=== PATIENT | female | born 1990 | race Caucasian/White ===

== ENCOUNTER 2017-12-20 08:24 | Inpatient (IN) | payer OTHER ==
[~2017-12-20] VITALS: Ht 170.2 cm; Wt 74.0 kg
[2017-12-20] VITALS (11 sets, daily range): BP systolic 100–123; BP diastolic 61–80; PULSE 18–69; RESP 16–20; TEMP 97.6–98.6; O2SAT 97–100
[2017-12-20 09:21] LABS: AUTOMATED NEUTROPHIL # 6.5 TH/MM3 (1.8-7.7); BASOPHIL # 0.1 TH/MM3 (0-0.2); BASOPHIL % 1.1 % (0.0-2.0); EOSINOPHIL # 0.1 TH/MM3 (0-0.4); EOSINOPHIL % 0.6 % (0.0-4.0); HEMATOCRIT 38.1 % (35.0-46.0); HEMOGLOBIN 13.5 GM/DL (11.6-15.3); LYMPH % 16.3 % (9.0-44.0); LYMPHOCYTE # 1.4 TH/MM3 (1.0-4.8); MEAN CELL VOLUME 88.1 FL (80.0-100.0); MEAN CORPUSCULAR HEMOGLOBIN 31.4 PG (27.0-34.0); MEAN CORPUSCULAR HGB CONC 35.6 % (32.0-36.0); MEAN PLATELET VOLUME 9.1 FL (7.0-11.0); MONO % 6.4 % (0.0-8.0); MONOCYTE # 0.5 TH/MM3 (0-0.9); NEUT % 75.6 % (16.0-70.0); PLATELET COUNT 200 TH/MM3 (150-450); RED BLOOD COUNT 4.32 MIL/MM3 (4.00-5.30); RED CELL DISTRIBUTION WIDTH 13.3 % (11.6-17.2); WHITE BLOOD COUNT 8.6 TH/MM3 (4.0-11.0)
[2017-12-20] MEDS ORDERED: LACTATED RINGER'S 1000 ML INJ 1,000 ML IV ONE (09:23)
[2017-12-20 09:24] LABS: BACTERIA, URINE OCC /hpf; BILIRUBIN, URINE NEG (NEG); BLOOD, URINE NEG (NEG); GLUCOSE,URINE NEG (NEG); KETONE, URINE NEG (NEG); MUCUS URINE FEW /lpf (OCC); NITRITE,URINE NEG (NEG); SQUAMOUS EPITHELIAL CELL URINE 14 /hpf (0-5); URINE COLOR YELLOW (YELLW/STRAW); URINE LEUKOCYTE ESTERASE MOD (NEG)
--- NOTE | 2017-12-20 09:32 | HHI.HP ---
HPI Chief Complaint breech at term with low fluid, for primary delivery Date Seen: Dec 20, 2017 Time Seen: 09:20 Travel History International Travel<30 Days: No Contact w/Intl Traveler<30Days: No Known Affected Area: No History of Present Illness HPI 27 yo with gonzales female IUP at 40w1d was seen for routine OB visit at office yesterday 12/19/17 with ultrasound showing FRANKY 7cm and position breech. Due to low normal fluid and breech presentation d/w pt recommendation for delivery via . Pt and amenable, desired to schedule today. No signs of labor. SVE yesterday in office closed cervix. Pain 1/10 mild pressure, no LOF no VB, good FM. complicated by history of HSV, no symptoms during , has been on preventative medication since 36 weeks with no prodrome. Weeks Gestation: 40 Para: 0 : 2 Last Menstrual Period: Mar 14, 2017 Miscarriage: 1 : 0 History Past Medical History Narrative Medical history of HSV, no outbreaks during Obstetric History Obstetric History G1 = SAB @ 5 wks, 12/2016 G2 = current Past Surgical History Narrative Surgical denies Family History Family History: Negative Social History Alcohol Use: No Tobacco Use: No Substance Abuse: No Allergies-Medications (Allergen,Severity, Reaction): Coded Allergies: No Known Allergies (Unverified , 12/20/17) Review of Systems General / Constitutional: Weight Gain, No: Fever, Chills, Other Eyes: No: Diploplia, Blurred Vision, Visual changes, Pain, Photophobia HENT: No: Headaches, Vertigo, Lightheadedness Cardiovascular: No: Irregular Rhythm, Chest Pain or Discomfort, Palpitations, Tachycardia, Syncope, Varicosities, Edema, Cyanosis Respiratory: No: Cough, Short of Breath, Other Gastrointestinal: No: Nausea, Vomiting, Diarrhea Genitourinary: Pelvic Pain (pressure), No: Decreased Urinary Output, Oliguria Musculoskeletal: No: Limited ROM, Weakness, Cramping, Edema, Pain Skin: No Rash, No Itching, No Dryness, No Lumps, No Change in Pigmentation, No Change in Nails, No Alopecia, No Lesions Neurologic: No: Weakness, Dizziness, Syncope, Focal Abnormalities, Coordination Problem, Headache, Slurred Speech, Seizures Psychiatric: No: Depression, Suicidal Ideations, Homicidal Ideation Endocrine: No: Heat Intolerance, Cold Intolerance, Polydipsia, Polyuria, Other Physical Exam Vital Signs Date Time Temp Pulse Resp B/P (MAP) Pulse Ox O2 Delivery O2 Flow Rate FiO2 12/20/17 08:57 69 118/80 (93) Narrative GENERAL: Well-nourished, well-developed patient. SKIN: Warm and dry. HEAD: Normocephalic and atraumatic. EYES: No scleral icterus. No injection or drainage. ENT: No nasal drainage noted. Mucous membranes pink. Airway patent. NECK: Supple, trachea midline. No JVD. CARDIOVASCULAR: Regular rate and rhythm without murmurs, gallops, or rubs. RESPIRATORY: Breath sounds equal bilaterally. No accessory muscle use. BREASTS: deferred. ABDOMEN/GI: Abdomen soft, non-tender, bowel sounds present, no rebound, no guarding Gravid to [40] weeks size Fundal Height: [40] GENITOURINARY: Closed/50/-3 on exam in office yesterday Presentation: breech on office sono 12/19/17 Membranes: [intact] Uterine Contractions: [rare] FHT's: Category:I EXTREMITIES: No cyanosis or edema. BACK: Nontender without obvious deformity. No CVA tenderness. NEUROLOGICAL: Awake and alert. Motor and sensory grossly within normal limits. Five out of 5 muscle strength in all muscle groups. Normal speech. Caprini VTE Risk Assessment Caprini VTE Risk Assessment: No/Low Risk (score <= 1) VTE Pharm Contraindication: High risk for bleeding Caprini Risk Assessment Model Point Value = 1 Point Value = 2 Point Value = 3 Point Value = 5 Age 41-60 Minor surgery BMI > 25 kg/m2 Swollen legs Varicose veins or History of unexplained or recurrent spontaneous Oral contraceptives or hormone replacement Sepsis (< 1 month) Serious lung disease, including pneumonia (< 1 month) Abnormal pulmonary function Acute myocardial infarction Congestive heart failure (< 1 month) History of inflammatory bowel disease Medical patient at bed rest Age 61-74 Arthroscopic surgery Major open surgery (> 45 min) Laparoscopic surgery (> 45 min) Malignancy Confined to bed (> 72 hours) Immobilizing plaster cast Central venous access Age >= 75 History of VTE Family history of VTE Factor V Leiden Prothrombin [id number] Lupus anticoagulant Anticardiolipin antibodies Elevated serum homocysteine Heparin-induced thrombocytopenia Other congenital or acquired thrombophilia Stroke (< 1 month) Elective arthroplasty Hip, pelvis, or leg fracture Acute spinal cord injury (< 1 month) Prophylaxis Regimen Total Risk Factor Score Risk Level Prophylaxis Regimen 0-1 Low Early ambulation 2 Moderate Order ONE of the following: *Sequential Compression Device (SCD) *Heparin 5000 units SQ BID 3-4 Higher Order ONE of the following medications: *Heparin 5000 units SQ TID *Enoxaparin/Lovenox 40 mg SQ daily (WT < 150 kg, CrCl > 30 mL/min) *Enoxaparin/Lovenox 30 mg SQ daily (WT < 150 kg, CrCl > 10-29 mL/min) *Enoxaparin/Lovenox 30 mg SQ BID (WT < 150 kg, CrCl > 30 mL/min) AND/OR *Sequential Compression Device (SCD) 5 or more Highest Order ONE of the following medications: *Heparin 5000 units SQ TID (Preferred with Epidurals) *Enoxaparin/Lovenox 40 mg SQ daily (WT < 150 kg, CrCl > 30 mL/min) *Enoxaparin/Lovenox 30 mg SQ daily (WT < 150 kg, CrCl > 10-29 mL/min) *Enoxaparin/Lovenox 30 mg SQ BID (WT < 150 kg, CrCl > 30 mL/min) AND *Sequential Compression Device (SCD) Data Data Vital Signs Reviewed: Yes Orders Orders Admit To Inpatient (12/20/17 ) Vital Signs (Adult) .ON ADMISSION (12/20/17 08:56) Activity Oob Ad [place] (12/20/17 08:56) Heart (12/20/17 08:56) Urinary Catheter Management CURT.Q8H (12/20/17 08:56) ^ Preps (12/20/17 08:56) Scd / Matteo / Foot Pump CURT.QSHIFT (12/20/17 08:56) ^ Ultrasound For Locatio (12/20/17 08:56) Diet Npo (12/20/17 Breakfast) Type And Screen (12/20/17 08:56) Complete Blood Count With Diff (12/20/17 08:56) Urinalysis - C+S If Indicated (12/20/17 08:56) Drug Screen, Random Urine (12/20/17 08:56) Specimen To Be Collected PRN (12/20/17 08:56) Specimen To Be Collected PRN (12/20/17 08:56) Code Status (12/20/17 09:23) ^ Preps (12/20/17 09:23) Scd / Matteo / Foot Pump CURT.QSHIFT (12/20/17 09:23) Lactated Ringer's 1000 Ml Inj (Lr 1000 M (12/20/17 09:23) Lactated Ringer's 1000 Ml Inj (Lr 1000 M (12/20/17 09:53) Cefazolin 2 Gm Premix (Ancef 2 Gm Premix (12/20/17 10:30) Citric Acid-Sodium Citrate Liq (Bicitra (12/20/17 11:00) Drug Screen, Random Urine (12/20/17 09:23) Specimen To Be Collected PRN (12/20/17 09:23) Group B Strep: Negative Labs Laboratory Tests Test 12/20/17 08:54 White Blood Count 8.6 Red Blood Count 4.32 Hemoglobin 13.5 Hematocrit 38.1 Mean Corpuscular Volume 88.1 Mean Corpuscular Hemoglobin 31.4 Mean Corpuscular Hemoglobin Concent 35.6 Red Cell Distribution Width 13.3 Platelet Count 200 Mean Platelet Volume 9.1 Neutrophils (%) (Auto) 75.6 Lymphocytes (%) (Auto) 16.3 Monocytes (%) (Auto) 6.4 Eosinophils (%) (Auto) 0.6 Basophils (%) (Auto) 1.1 Neutrophils # (Auto) 6.5 Lymphocytes # (Auto) 1.4 Monocytes # (Auto) 0.5 Eosinophils # (Auto) 0.1 Basophils # (Auto) 0.1 CBC Comment DIFF FINAL Differential Comment Assessment/Plan Problem List: (1) Breech presentation of fetus ICD Codes: O32.1XX0 - Maternal care for breech presentation, not applicable or unspecified Status: Acute Qualifiers: Qualified Codes: O32.1XX0 - Maternal care for breech presentation, not applicable or unspecified (2) 40 weeks gestation of ICD Codes: Z3A.40 - 40 weeks gestation of Status: Acute Assessment and Plan 27 yo with gonzales female IUP at 40w1d admit for scheduled due to breech at term and low normal FRANKY 1) breech: for primary CD, r/b/a d/w pt & , AQA, consents signed 2) GBS neg 3) h/o HSV, no prodrome or outbreaks during , has been on preventative Valtrex since 36 wks 4) status: breech, female, EFW 7# Discharge Planning 2-3d PP Priya Corrales MD Dec 20, 2017 09:32
[2017-12-20] MEDS ORDERED: LACTATED RINGER'S 1000 ML INJ 1,000 ML IV SCH ×2 (09:53→16:26)
[2017-12-20] MEDS ORDERED: MORPHINE SULFATE PF 5 MG/10 ML VIAL ONE (10:22)
[2017-12-20] MEDS ORDERED: ACETAMINOPHEN 1000 MG/100 ML 100 ML IV ONE ×2 (10:22→11:30)
[2017-12-20] MEDS ORDERED: CEFAZOLIN INJ 2,000 MG in SODIUM CHLORIDE 0.9% INJ 100 ML IV SCH (10:30)
[2017-12-20] MEDS ORDERED: ceFAZolin 2 GM PREMIX 50 ML IV SCH (10:30)
[2017-12-20] MEDS ORDERED: CITRIC ACID-SODIUM CITRATE LIQ 30 ML UDC PO SCH (11:00)
[2017-12-20] MEDS ORDERED: SIMETHICONE 80 MG CHEWABLE TAB PO PRN (11:30)
[2017-12-20] MEDS: SODIUM CHLORIDE 0.9% FLUSH 10 ML FLUSH IV FLUSH SCH (11:30)
[2017-12-20] MEDS ORDERED: oxyCODONE/ACETAMINOPHEN 5 MG/325 MG TAB PO PRN (11:30)
[2017-12-20] MEDS ORDERED: ONDANSETRON HCL 4 MG/2 ML VIAL IV PUSH PRN (11:30)
[2017-12-20] MEDS ORDERED: ACETAMINOPHEN 325 MG TAB PO PRN (11:30)
[2017-12-20] MEDS ORDERED: SODIUM CHLORIDE 0.9% FLUSH 10 ML FLUSH IV FLUSH PRN (11:30)
[2017-12-20] MEDS ORDERED: OXYTOCIN 30 UNITS-500ML PREMIX 500 ML IV ONE (11:30)
[2017-12-20] MEDS ORDERED: KETOROLAC TROMETHAMINE 60 MG/2 ML (IM) VIAL IM PRN (11:30)
--- NOTE | 2017-12-20 11:31 | PD.OB.DELI ---
Procedure Note Section Procedure Pre Op Diagnosis: (1) Breech presentation of fetus (2) 40 weeks gestation of Post Op Diagnosis: (1) S/P primary low transverse (2) Breech presentation of fetus (3) 40 weeks gestation of Performed by Priya Corrales Procedure: Primary Low Transverse Sec Indication for delivery: malposition (patricio breech) Previous condition: None Informed consent obtained: For anesthesia, For procedure Confirmed correct: Patient, Procedure, Site, Time-out taken Anesthesia: Spinal Medication prior to procedure: As documented in eMAR Monitoring during procedure: Blood pressure monitoring, Pulse oximetry Urinary catheter: Inserted using sterile technique, To dependent drainage, ml urine output (300 mL) Sterile preparation: Duraprep, In usual fashion, With drapes to expose affected area Position: Supine with wedge to right side Operative Features Skin Incision: Pfannenstiel Uterine Incision: Low transverse w/knife / scissors Membranes Ruptured: Artificially, Amount of liquid (scant), Appearance of fluid (clear) Presentation: Breech Delivery date: Dec 20, 2017 Delivery time: 10:57 Delivery of : Uneventful Infant: Female One Minute : 8 Five Minute : 9 Weight: 9#1oz Status of infant: Viable, Cord blood, Nursery present Placenta delivered: Intact Medications: Antibiotics (ancef 2g IV x 1) Estimated blood loss: 300 mL Procedure tolerated: Well Maternal Condition: Stable Condition: Stable Procedure in detail see dictated op note Priya Corrales MD Dec 20, 2017 11:31
--- NOTE | 2017-12-20 11:37 | HHI.DCPOC ---
Discharge Care Plan Diagnosis: (1) S/P primary low transverse Your Health Problems Are: delivery Report Symptoms to Your Doctor -Temperature above 100.5 degrees -Redness, of incision or excessive or foul smelling drainage -Unusual pain or calf pain -Increased vaginal bleeding -Painful or difficulty urinating -Feelings of extreme sadness or anxiety after 2 weeks Goals to Promote Your Health * To prevent worsening of your condition and complications * To maintain your health at the optimal level Directions to Meet Your Goals Take your medications as prescribed Follow your dietary instruction Follow activity as directed Ensure plenty of rest for recovery Drink fluids for hydration Keep your appointments as scheduled Take your immunizations and boosters as scheduled If your symptoms worsen call your PCP, if no PCP go to Urgent Care Center or Emergency Room Smoking is Dangerous to Your Health. Avoid second hand smoke Call the 24-hour crisis hotline for domestic abuse at Priya Corrales MD Dec 20, 2017 11:37
[2017-12-20] MEDS ORDERED: VALT1TAB PO (11:41)
[2017-12-20] MEDS ORDERED: OXYTOCIN 10 UNIT/ML AMP IV ONE (12:00)
[2017-12-20] MEDS ORDERED: ONDANSETRON HCL 4 MG/2 ML VIAL IV ONE (12:00)
[2017-12-20] MEDS ORDERED: DEXAMETHASONE SOD PHOS 4 MG/ML VIAL IV ONE (12:00)
[2017-12-20] MEDS ORDERED: KETOROLAC TROMETHAMINE 30 MG/ML (IVP) VIAL IV PUSH ONE (12:00)
[2017-12-20] MEDS ORDERED: ceFAZolin INJ 1,000 MG VIAL IV ONE (12:00)
[2017-12-20] MEDS ORDERED: STERILE WATER FOR INJECTION 20 ML VIAL IV ONE (12:00)
--- NOTE | 2017-12-20 12:01 | MP ---
cc: Priya Corrales MD DATE OF SURGERY: 12/20/2017 PREOPERATIVE DIAGNOSIS: Petty term intrauterine in breech malpresentation. POSTOPERATIVE DIAGNOSES: 1. Petty term intrauterine in breech malpresentation. 2. Postoperative day number 0. INDICATION FOR PROCEDURE: Tyler Koehler is a 27-year-old 2, now para 1-0-1-1 who has been seen and evaluated in the office throughout her . She was seen for her 40-week check on 12/19/2017 at which time she had an ultrasound to evaluate amniotic fluid level and she was found to have a presentation of patricio breech with low normal amniotic fluid of 7 cm. The patient was counseled and it was discussed indication for primary delivery. As such, she was scheduled. DESCRIPTION PERFORMED: Primary low transverse delivery. SURGEON: Priya Corrales MD TRAVERSE ROD ASSEMBLER: AMENA Gong3. TYPE OF ANESTHESIA: Spinal. ESTIMATED BLOOD LOSS: 300 mL. IV FLUID REPLACEMENT: 2 liters. URINE OUTPUT: 300 mL of clear urine draining in the Dixon bag at the conclusion of the procedure. PROPHYLAXIS: Ancef 2 grams IV given preoperatively and SCDs were on and functioning throughout the entire case. COMPLICATIONS: None. COUNTS: Sponge, lap, instrument and needle countswere correct x 2 at the conclusion of the procedure. INTRAOPERATIVE FINDINGS: Include a vigorous viable female in patricio breech presentation. Apgars of 8 and 9. Weight 9 pounds 1 ounce. Scant clear amniotic fluid. Uterus was not exteriorized during the procedure, but normal anatomy was palpated on intraoperative exam. SPECIMEN: None. PROCEDURE IN DETAIL: After reviewing the informed consent, the patient was taken to the operating suite, where a timeout was performed to identify the patient, the planned procedure and any known allergies to drugs or drug products. The patient was placed sitting up on the exam table and spinal anesthesia was administered without difficulty and found to be adequate. The patient was then gently laid into dorsal supine position with a bump under her right side and abdomen and perineum were prepped and draped in normal sterile fashion. A Dixon was placed using sterile technique. After testing and numbness was confirmed, a Pfannenstiel type skin incision was made with a scalpel and carried down to the underlying layer of fascia with the Bovie. The fascia was incised in the midline. Incision was extended laterally with sharp dissection using Ford scissors. Superior edge of the fascial incision was then elevated with Girma clamps. Rectus muscles were dissected off sharply with Ford scissors. Kochers were then moved to the inferior aspect of the fascial incision and again rectus muscles were dissected off sharply with Ford scissors. Rectus muscles were then in the midline. Peritoneum was identified and entered bluntly with surgeon's index finger. Incision was extended bluntly with good visualization of intra-abdominal contents. Bladder blade was placed. A bladder flap was not made. Low transverse uterine incision was made with the scalpel. The 's rump was grasped and elevated out through the incision. The left and right leg were gently flexed to be safely delivered. The infant's left arm was then swept across the infant's chest for delivery, the infant's right arm was then swept across the infant's chest for delivery and using gentle fundal pressure, the infant's head delivered without complication. There was a body cord that was delivered through. The 's nose and mouth were suctioned with bulb suction. The infant was crying and vigorous upon delivery. Delayed cord clamping of 45 seconds was performed. Cord was then clamped and cut. was handed off to the awaiting nursery staff. The placenta was then removed with gentle cord traction and fundal massage. The uterus was not exteriorized. It was cleared of clots and debris with sterile moist lap sponges. Hysterotomy was repaired in a double-layer, first in a running locked layer and then in an imbricating layer with #1 chromic. The gutters were irrigated copiously and excellent hemostasis was noted. Peritoneum was closed in a running fashion using 2-0 chromic. The fascia was closed in a running layer using #1 Vicryl. The subcutaneous tissue was irrigated copiously with warm sterile saline. The skin was closed in a subcuticular fashion with 4-0 Monocryl. The skin was cleaned and dried. Steri-Strips were placed, as was a Primapore dressing. The procedure concluded at this point. The patient tolerated the procedure well without complication. DISPOSITION: The patient will stay 2-3 postoperative days. is nursery status. MD JEY Pickard , 11:37 AM , 11:59 AM [email or web address]
[2017-12-20] MEDS ORDERED: OXYTOCIN 30 UNITS-500ML PREMIX 500 ML ONE (12:02)
[2017-12-20] MEDS ORDERED: ZOLPIDEM TARTRATE 5 MG TAB PO PRN (21:00)
[2017-12-20] MEDS ORDERED: OXYTOCIN 30 UNITS-500ML PREMIX 500 ML IV PRN (21:30)
[2017-12-21 04:25] VITALS: PULSE 60; RESP 17; TEMP 98.3; O2SAT 96
[2017-12-21] MEDS: IBUPROFEN 600 MG TAB PO PRN ×3 (04:25→17:40)
[2017-12-21 05:00] VITALS: BP 101/67
[2017-12-21 06:27] LABS: AUTOMATED NEUTROPHIL # 8.5 TH/MM3 (1.8-7.7); BASOPHIL # 0.1 TH/MM3 (0-0.2); BASOPHIL % 0.5 % (0.0-2.0); EOSINOPHIL # 0.1 TH/MM3 (0-0.4); EOSINOPHIL % 0.6 % (0.0-4.0); HEMATOCRIT 33.2 % (35.0-46.0); HEMOGLOBIN 11.5 GM/DL (11.6-15.3); LYMPH % 18.1 % (9.0-44.0); LYMPHOCYTE # 2.1 TH/MM3 (1.0-4.8); MEAN CELL VOLUME 88.1 FL (80.0-100.0); MEAN CORPUSCULAR HEMOGLOBIN 30.5 PG (27.0-34.0); MEAN CORPUSCULAR HGB CONC 34.6 % (32.0-36.0); MEAN PLATELET VOLUME 8.8 FL (7.0-11.0); MONO % 7.3 % (0.0-8.0); MONOCYTE # 0.8 TH/MM3 (0-0.9); NEUT % 73.5 % (16.0-70.0); PLATELET COUNT 189 TH/MM3 (150-450); RED BLOOD COUNT 3.77 MIL/MM3 (4.00-5.30); RED CELL DISTRIBUTION WIDTH 13.5 % (11.6-17.2); WHITE BLOOD COUNT 11.6 TH/MM3 (4.0-11.0)
[2017-12-21 08:00] VITALS: BP 119/73; PULSE 62; RESP 20; TEMP 97.8; O2SAT 100
[2017-12-21] MEDS ORDERED: MEASLES, MUMPS, RUBELLA VACCINE 0.5 ML VIAL SQ ONE (16:00)
[2017-12-21] MEDS ORDERED: DIPHTH/TETANUS/ACEL PERTUSSIS (BOOSTER) 0.5 ML VIAL/PFS IM ONE (16:00)
--- NOTE | 2017-12-21 16:13 | HHI.OB ---
Subjective Post Operative Day: 1 Remarks Doing well Tolerating diet well Pain is well controlled Baby is doing good. Objective Vitals/I&O Vital Signs Date Time Temp Pulse Resp B/P (MAP) Pulse Ox O2 Delivery O2 Flow Rate FiO2 12/21/17 08:00 119/73 (88) 12/21/17 08:00 97.8 62 20 100 12/21/17 05:00 101/67 (78) 12/21/17 04:25 98.3 60 17 96 12/20/17 23:50 98.2 57 18 100/66 (77) 12/20/17 20:34 98.2 57 17 112/68 (83) 12/20/17 16:35 98.2 63 18 108/78 (88) 97 Result Diagram: 12/21/17 0556 Objective Remarks GENERAL: Well-nourished, well-developed patient. CARDIOVASCULAR: Regular rate and rhythm without murmurs, gallops, or rubs. RESPIRATORY: Breath sounds equal bilaterally. No accessory muscle use. ABDOMEN/GI: Abdomen soft, non-tender, bowel sounds present. Incision: Clean, dry and intact. Fundus: Firm, non-tender at umbilicus. GENITOURINARY: Light to moderate bleeding. EXTREMITIES: No cyanosis or edema, non-tender, without signs of DVT. Medications and IVs Current Medications Medications (Trade) Dose Ordered Sig/Clive Route Start Time Stop Time Status Last Admin Oxytocin 500 ml @ 100 mls/hr UNSCH X1 PRN IV 12/20/17 21:30 12/21/17 21:29 (NS Flush) 2 ml BID IV FLUSH 12/20/17 11:30 (NS Flush) 2 ml UNSCH PRN IV FLUSH 12/20/17 11:30 (Mylicon Chew) 80 mg QID PRN PO 12/20/17 11:30 (Tylenol) 650 mg Q6H PRN PO 12/20/17 11:30 (Motrin) 600 mg Q6H PRN PO 12/20/17 11:30 12/21/17 11:49 (Percocet 5-325 Mg) 1 tab Q4H PRN PO 12/20/17 11:30 12/21/17 11:49 (Percocet 5-325 Mg) 2 tab Q4H PRN PO 12/20/17 11:30 (Syeda-Colace) 2 tab Q12H PRN PO 12/20/17 21:00 (Ambien) 5 mg HS PRN PO 12/20/17 21:00 (Zofran Inj) 4 mg Q6H PRN IV PUSH 12/20/17 11:30 Assessment/Plan Problem List: (1) Breech presentation of fetus ICD Codes: O32.1XX0 - Maternal care for breech presentation, not applicable or unspecified Status: Acute Qualifiers: Qualified Codes: O32.1XX0 - Maternal care for breech presentation, not applicable or unspecified (2) 40 weeks gestation of ICD Codes: Z3A.40 - 40 weeks gestation of Status: Acute Assessment and Plan POD #1 Doing well Routine care Discharge Planning Plan d/c home in 1-2 days. Tomeka Mcknight MD Dec 21, 2017 16:13
[2017-12-21] MEDS: oxyCODONE/ACETAMINOPHEN 5 MG/325 MG TAB PO PRN ×2 (17:40→21:42)
[2017-12-21] MEDS: DOCUSATE SODIUM 50 MG/SENNA 8.6 MG TAB PO PRN (17:40)
[2017-12-21 21:09] VITALS: BP 103/74; PULSE 69; RESP 18; TEMP 97.7
[2017-12-22] MEDS: oxyCODONE/ACETAMINOPHEN 5 MG/325 MG TAB PO PRN ×2 (03:37→10:21)
[2017-12-22] MEDS: IBUPROFEN 600 MG TAB PO PRN ×2 (03:37→10:21)
[2017-12-22] MEDS: SODIUM CHLORIDE 0.9% FLUSH 10 ML FLUSH IV FLUSH SCH (09:02)
[2017-12-22 09:30] VITALS: BP 112/67; PULSE 66; RESP 18; TEMP 98.8
[2017-12-22] MEDS: DOCUSATE SODIUM 50 MG/SENNA 8.6 MG TAB PO PRN (10:22)
--- NOTE | 2017-12-22 10:52 | HHI.OB ---
Subjective Post Operative Day: 2 Remarks doing well ready for discharge nursing Objective Vitals/I&O Vital Signs Date Time Temp Pulse Resp B/P (MAP) Pulse Ox O2 Delivery O2 Flow Rate FiO2 12/22/17 09:30 98.8 66 18 112/67 (82) 12/21/17 21:09 97.7 69 18 103/74 (84) Result Diagram: 12/21/17 0556 Objective Remarks GENERAL: Well-nourished, well-developed patient. CARDIOVASCULAR: Regular rate and rhythm without murmurs, gallops, or rubs. RESPIRATORY: Breath sounds equal bilaterally. No accessory muscle use. ABDOMEN/GI: Abdomen soft, non-tender, bowel sounds present. Incision: Clean, dry and intact. Fundus: Firm, non-tender at umbilicus. GENITOURINARY: Light to moderate bleeding. EXTREMITIES: No cyanosis or edema, non-tender, without signs of DVT. Medications and IVs Current Medications Medications (Trade) Dose Ordered Sig/Clive Route Start Time Stop Time Status Last Admin (NS Flush) 2 ml BID IV FLUSH 12/20/17 11:30 (NS Flush) 2 ml UNSCH PRN IV FLUSH 12/20/17 11:30 (Mylicon Chew) 80 mg QID PRN PO 12/20/17 11:30 (Tylenol) 650 mg Q6H PRN PO 12/20/17 11:30 (Motrin) 600 mg Q6H PRN PO 12/20/17 11:30 12/22/17 10:21 (Percocet 5-325 Mg) 1 tab Q4H PRN PO 12/20/17 11:30 12/21/17 11:49 (Percocet 5-325 Mg) 2 tab Q4H PRN PO 12/20/17 11:30 12/22/17 10:21 (Syeda-Colace) 2 tab Q12H PRN PO 12/20/17 21:00 12/22/17 10:22 (Ambien) 5 mg HS PRN PO 12/20/17 21:00 (Zofran Inj) 4 mg Q6H PRN IV PUSH 12/20/17 11:30 Assessment/Plan Problem List: (1) Breech presentation of fetus ICD Codes: O32.1XX0 - Maternal care for breech presentation, not applicable or unspecified Status: Acute Qualifiers: Qualified Codes: O32.1XX0 - Maternal care for breech presentation, not applicable or unspecified (2) 40 weeks gestation of ICD Codes: Z3A.40 - 40 weeks gestation of Status: Acute Assessment and Plan POD #1 Doing well Routine care POD 2 12/22/17 home today with script RTO 1 week Discharge Planning Plan d/c home in 1-2 days. Raven Zuñiga MD Dec 22, 2017 10:52
[2017-12-22] MEDS ORDERED: OXYC1TAB63 PO (10:54)
== END 2017-12-22 16:54 | disposition home or self-care (01) | DRG 766 ==
LOC: H2EB 08:24 → H1EA 12:46
PROVIDERS: ADMIT Obstetrics & Gynecology; ATTEND Obstetrics & Gynecology
PROC: 10D00Z1 Extraction of Products of Conception, Low, Open Approach (ICD-10-PCS; principal; 2017-12-20)
DX: O32.1XX0 Maternal care for breech presentation, not applicable or unspecified (principal); Z23 Encounter for immunization; Z37.0 Single live birth; Z3A.40 40 weeks gestation of pregnancy
CPT/HCPCS: 59025; 80307; 81001; 85025; 86850; 86900; 86901; J0131; J0690; J1100; J1885; J2274; J2405; J2590; J7120